=== PATIENT | female | born 1955 | race Caucasian/White ===

== ENCOUNTER 2018-01-18 08:39 | Day surgery (SDC) | payer OTHER ==
[~2018-01-18] VITALS: Ht 167.6 cm; Wt 75.3 kg
[~2018-01-18 08:39] MED LIST: LOSARTAN POTAS100 MG PO
== END 2018-01-18 10:35 | disposition home or self-care (01) ==
LOC: ORSCSDS 08:39
PROVIDERS: Internal Medicine Gastroenterology
PROC: 0DBH8ZX Excision of Cecum, Via Natural or Artificial Opening Endoscopic, Diagnostic (ICD-10-PCS; principal; 2018-01-18 10:00)
PROC: 0DBN8ZX Excision of Sigmoid Colon, Via Natural or Artificial Opening Endoscopic, Diagnostic (ICD-10-PCS; principal; 2018-01-18 10:00)
DX: Z12.11 Encounter for screening for malignant neoplasm of colon (principal); D12.0 Benign neoplasm of cecum; I10 Essential (primary) hypertension; Z79.899 Other long term (current) drug therapy
CPT/HCPCS: 88305